=== PATIENT | male | born 1995 | race Caucasian/White ===

== ENCOUNTER 2018-01-24 23:13 | Emergency (ER) | payer BC ==
[2018-01-24 23:40] LABS: PLATELET COUNT 265 10^3/uL (150-400)
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
[2018-01-25 08:23] VITALS: BP 152/77
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
--- NOTE | 2018-01-25 13:42 | ASMTTCLDSP ---
[facility] Discharge Disposition Disposition: Answers: Discharge If Answers: Yes DISCHARGED: Patient/family given suicide hotline info & [facility] brochure? Disposition Notes: Notes: Pt stated commitment or ability to keep self safe, denied thoughts of self harm or harm to others. Pt was given local hotline information and [facility] brochure After an Attempt. He plans to return flight back to [place] after attending his court appearance on 01/26/18 at 1:30pm. Discharge Concerns/Recommendations: Notes: In consultation with [facility] ED physician, Heather Redmond, Dr. Redmond concurred that pt does not appear to meet 27-65 criteria requiring psychiatric hospitalization as pt does not appear to be an imminent risk of harm to self/others/gravely disabled due to a mental illness condition. Dr. Redmond provided verbal order read back vacating M1 hold at 0915 hrs. Was patient given the Answers: Not applicable Inpatient Behavioral Health Prohibited Belongings List while in the ED? Psychiatrist vacating M1 Heather Redmond MD Hold: Date and time M1 hold 01/25/2018 09:15 AM vacated (time format is hh:mm): Type of Hold: Answers: M1/72-hour Hold Hold initiated by: Answers: Police Date Signed: 01/25/2018 01:34 PM Electronically Signed By:Brady Alvares
== END 2018-01-25 09:50 | disposition home or self-care (01) ==
DX: F32.9 Major depressive disorder, single episode, unspecified (principal); F17.200 Nicotine dependence, unspecified, uncomplicated
CPT/HCPCS: 80305; G0480